=== PATIENT | male | born 1985 | race Caucasian/White ===

== ENCOUNTER 2019-08-15 22:37 | Emergency (ER) | payer SELFPAY ==
[~2019-08-15] VITALS: Ht 167.6 cm; Wt 104.0 kg
[2019-08-15] MEDS ORDERED: HYDROCODONE/ACETAMINOPHEN 10/325MG TABLET PO ONE (23:15)
[2019-08-16 02:13] VITALS: BP 131/79
== END 2019-08-16 02:14 | disposition home or self-care (01) ==
LOC: ER 22:37
DX: S06.0X0A Concussion without loss of consciousness, initial encounter (principal); S00.83XA Contusion of other part of head, initial encounter; S00.81XA Abrasion of other part of head, initial encounter; Y04.0XXA Assault by unarmed brawl or fight, initial encounter; Y93.89 Activity, other specified; Y92.488 Other paved roadways as the place of occurrence of the external cause
CPT/HCPCS: 70486; 99285